=== PATIENT | female | born 1980 | race African-American/Black ===

== ENCOUNTER 2019-12-30 07:38 | Day surgery (SDC) ==
--- NOTE | 2019-11-09 10:13 | EKG Report ---
Test Performed on : 11/09/2019 09:07:48 AM Test Reason : PAT Blood Pressure : / mmHG Vent. Rate : 070 BPM Atrial Rate : 070 BPM P-R Int : 148 ms QRS Dur : 086 ms QT Int : 388 ms P-R-T Axes : 034 -09 -20 degrees QTc Int : 419 ms Normal sinus rhythm. with sinus arrhythmia. Voltage criteria for left ventricular hypertrophy Nonspecific T wave abnormality Abnormal ECG No previous ECGs available Confirmed by Alejandro Slade MD ([id number]) on 11/10/2019 7:40:49 AM
--- NOTE | 2019-12-29 20:16 | HISTORY AND PHYSICAL ---
HISTORY OF PRESENT ILLNESS: This is a 39-year-old female who has developed significant flank pain. She has history of urolithiasis as well as left hydronephrosis. She underwent cystoscopy and bilateral retrograde pyelograms on 09/14/2019. She had significant ureteropelvic junction obstruction on retrograde pyelogram. She continues to have left flank pain. Her flank pain has been exacerbated, and she reports associated nausea. She had to have pain medications called in given the worsening pain. PAST MEDICAL HISTORY: Hypertension, urolithiasis, microhematuria, stress urinary incontinence, hypothyroidism, GERD. PAST SURGICAL HISTORY: Cholecystectomy, foot surgery, Altis midurethral sling. MEDICATIONS: Hydrochlorothiazide, levothyroxine, Protonix, Toradol, Ultram. ALLERGIES: Penicillin. FAMILY HISTORY: Negative for malignancies. SOCIAL HISTORY: Denies tobacco, alcohol or illicit drug use. PHYSICAL EXAMINATION: GENERAL: No acute distress. HEENT: Normocephalic, atraumatic. CARDIOVASCULAR: Regular rhythm. PULMONARY: Bilateral breath sounds. ABDOMEN: Soft, protuberant, nontender to palpation. GENITOURINARY: Normal external female genitalia. ASSESSMENT AND PLAN: A 39-year-old female with symptomatic left ureteropelvic junction obstruction who continues to have significant pain and nausea. She was counseled on observation versus cystoscopy with left ureteral stent placement followed by serial stent exchanges versus endopyelotomy versus robotic pyeloplasty. Pros and cons of each procedure were explained. She wants to proceed with the latter. We discussed the risks of left robotic pyeloplasty including but not limited to, bleeding, infection, injury to adjacent organs, inability to repair scar tissue, chance of scar tissue recurrence. Need for ureteral stent for 4 to 6 weeks. Need for additional procedures. She voiced understanding and wants to proceed. PLAN: Left robotic-assisted laparoscopic pyeloplasty with left ureteral stent placement. cc: Kalpesh Martinez MD
[2019-12-30] MEDS ORDERED: LR 1,000 ML ONE ×2 (07:52→09:32)
[2019-12-30] MEDS ORDERED: LEVAQUIN 500 MG/D5W 500 MG/100 ML IVPB ONE (07:52)
[2019-12-30] MEDS ORDERED: REGLAN ONE (07:52)
[2019-12-30] MEDS ORDERED: PEPCID ONE (07:52)
[2019-12-30] MEDS ORDERED: VALIUM ONE (08:09)
[2019-12-30] MEDS ORDERED: DIPRIVAN 1% ONE (08:40)
[2019-12-30] MEDS ORDERED: NORCURON ONE (08:41)
[2019-12-30] MEDS ORDERED: XYLOCAINE-MPF 2% ONE (08:41)
[2019-12-30] MEDS ORDERED: QUELICIN (DOSE) ONE (08:41)
[2019-12-30] MEDS ORDERED: VERSED ONE (08:41)
[2019-12-30] MEDS ORDERED: FENTANYL ONE (08:41)
[2019-12-30] MEDS ORDERED: SODIUM CHLORIDE 0.9% 10 ML ONE (08:43)
[2019-12-30] MEDS ORDERED: MARCAINE 0.25% PF/EPI 1:200,000 ONE (09:32)
[2019-12-30] MEDS ORDERED: DECADRON ONE (09:44)
[2019-12-30] MEDS ORDERED: ZOFRAN ONE (09:44)
[2019-12-30] MEDS ORDERED: OFIRMEV 1000 MG/ISOTONIC SOLN 1,000 MG/100 ML BOTTLE ONE (10:08)
[2019-12-30] MEDS ORDERED: ROBINUL ONE (10:26)
[2019-12-30] MEDS ORDERED: NEOSTIGMINE ONE (10:26)
[2019-12-30] MEDS: DILAUDID ONE ×2 (11:38→11:52)
[2019-12-30] MEDS ORDERED: MORPHINE IV PRN (12:54)
[2019-12-30] MEDS ORDERED: BENADRYL LIQUID PO PRN (13:00)
[2019-12-30] MEDS ORDERED: NORCO-10 PO PRN (13:00)
[2019-12-30] MEDS ORDERED: TYLENOL PO PRN (13:00)
[2019-12-30] MEDS ORDERED: DILAUDID IV PRN (13:00)
[2019-12-30] MEDS ORDERED: D5 1/2 NS 1,000 ML IV SCH (13:00)
[2019-12-30] MEDS ORDERED: PHENERGAN IV PRN (13:00)
[2019-12-30] MEDS ORDERED: NORCO-5 PO PRN (13:00)
[2019-12-30] MEDS ORDERED: BENADRYL IV PRN (13:00)
[2019-12-30] MEDS ORDERED: ZOFRAN IV PRN (13:00)
[2019-12-30] MEDS ORDERED: PHENERGAN PO PRN (13:00)
[2019-12-30] MEDS ORDERED: LABETALOL IV PRN (13:00)
[2019-12-30] MEDS ORDERED: DITROPAN PO PRN (13:00)
[2019-12-30] MEDS ORDERED: PHENERGAN PR PRN (13:00)
[2019-12-30] MEDS ORDERED: OFIRMEV 1000 MG/ISOTONIC SOLN 1,000 MG/100 ML BOTTLE IV PRN (16:30)
[2019-12-30] MEDS: NORCO-7.5 PO PRN (18:08)
[2019-12-30] MEDS: TORADOL IV SCH (18:09)
[2019-12-30] MEDS ORDERED: COLACE PO SCH (21:00)
[2019-12-30] MEDS ORDERED: PERIDEX MT SCH (21:00)
[2019-12-31] MEDS: TORADOL IV SCH ×2 (00:05→05:21)
[2019-12-31 06:45] LABS: CREATININE BODY FLUID 5.9 mg/dL
[2019-12-31 07:30] VITALS: BP 134/77
--- NOTE | 2019-12-31 07:32 | OPERATIVE NOTE ---
PROCEDURE DATE: 12/30/2019 SURGEON: Dr. Kalpesh Martinez. MECHANICAL ENGINEERING DIRECTOR: Dr. Iraj Smiley. Please note that Dr. Smiley assisted in every critical part of the operation. PROCEDURE NAME: Left robotic-assisted laparoscopic pyeloplasty, placement of 6-Bangladeshi, 22 cm stent. INDICATIONS: A 39-year-old female who had imaging in the past revealing left hydronephrosis. She underwent further evaluation with cystoscopy and retrograde pyelograms at [facility] which revealed a dilated renal pelvis with hydronephrosis and what appeared to be clear ureteropelvic junction obstruction. She was counseled on observation versus serial stents versus repair, and started developing pain and nausea. She desires intervention. PREOPERATIVE DIAGNOSES: 1. Left ureteropelvic junction obstruction. 2. Left flank pain. 3. Nausea. Please note that she was counseled on waiting with the procedure and the risk of renal function deterioration, and she wants to proceed. FINDINGS: Watertight, tension-free anastomosis. There was an hourglass deformity at the ureteropelvic junction, consistent with pyelogram results. DESCRIPTION OF PROCEDURE: After obtaining informed consent, the patient was brought to the operating room. Perioperative antibiotics and general endotracheal anesthesia were administered. She was placed in the modified flank position with the left side up. She was prepped and draped in a sterile fashion. A 6-Bangladeshi Pereyra catheter was introduced and bladder was drained. I began by making a small stab incision in her left upper quadrant and introduced a Veress needle connected to a saline-filled syringe, and confirmed positive drop test, followed by aspiration of fluid in the syringe without evidence of GI contents or blood. We then insufflated her pneumoperitoneum pressure to 15 mmHg. The trocar sites were demarcated in what would be a partial nephrectomy fashion. Quarter percent Marcaine with epinephrine was used for a local anesthetic in the amount of 10 mL. Bovie electrocautery was used to the skin. A 12 mm camera trocar was introduced and peritoneal cavity was inspected. She did not have any significant adhesions. I was able to place the rest of the trocars under direct vision. She was positioned in a more pronounced flank position. The robot was docked. We began by incising the white line of Toldt and mobilizing the colon medially. This allowed us to expose Gerota's fascia. I followed the contour of the kidney to its lower pole and incised the Gerota's fascia, eventually being able to identify the ureter and the gonadal vein. We then carefully dissected along the ureter in a cephalad direction until the ureteropelvic junction came into the view. I made sure to preserve periurethral blood supply. There was a pretty clear narrowing right at the ureteropelvic junction which was just a few millimeters and there was some dilation of the renal pelvis, although it did not appear to be as pronounced as it was in the retrograde pyelogram. I dissected to get us approximately 2 cm of margin of the renal pelvis and in the process, was able to identify the left renal vein. We then transected the ureteropelvic junction and sent it off for identification. The ureter was spatulated with monopolar scissors in a cold fashion. Then 4-0 Vicryl sutures were used in an interrupted fashion x4 to reapproximate the posterior renal pelvis and the posterior aspect of the ureter. I was able to tie the sutures and the anastomosis appeared to be tension- free. Subsequent to that, a Sensor wire was introduced into the ureter and a 6-Bangladeshi, 22 cm stent was advanced over the wire with the proximal coil position confirmed by placement under direct vision into the renal pelvis. I then placed 4 more interrupted sutures, giving us a total of 8 interrupted 4-0 Vicryl sutures to complete the anastomosis. There was no evidence of leakage at the anastomotic site. Again, it appeared to be tension-free. Pneumoperitoneal pressure was decreased to 3 mmHg. There was no evidence of bleeding. A Ziggy drain was introduced via the fourth arm trocar site and secured to the skin with 2-0 nylon suture. The robot was undocked. Her wounds were irrigated. A 0 Vicryl suture was used to reapproximate the fascia of the camera and assistant banquet manager trocar sites. Then 4-0 Monocryl was used for subcuticular closure, followed by Covidien adhesive agent. She tolerated the procedure well. Her Pereyra catheter was removed. She was extubated and taken to the PACU for further recovery. ESTIMATED BLOOD LOSS: 10 mL. COMPLICATIONS: None. SPECIMENS REMOVED: Labeled left ureteropelvic junction. DRAINS: A 6-Bangladeshi, 22 cm stent. DISPOSITION: To the PACU and subsequently the floor for observation with the Ziggy drain to bulb suction. cc: Kalpesh Martinez MD
[2019-12-31 07:49] LABS: HEMOGLOBIN 11.2 g/dL (12.0-16.0); MCH 30.4 PG (27-31); MCHC 32.9 g/dL (33-37); MCV 92.1 FL (81-99); MPV 10.9 FL (7.4-10.4); RBC 3.69 XMIL (4.2-5.4); RDW 13.5 % (11.5-14.5); WBC 13.36 X1000 (4.8-10.8)
[2019-12-31 08:05] LABS: CALCIUM 9.2 mg/dL (8.8-10.2); CREATININE 1.3 mg/dL (0.5-0.9); POTASSIUM 3.6 mmol/L (3.5-5.1)
[2019-12-31] MEDS ORDERED: LEVAQUIN 500 MG/D5W 500 MG/100 ML IVPB IV SCH (09:00)
[2019-12-31] MEDS: NORCO-7.5 PO PRN (09:44)
--- NOTE | 2019-12-31 16:12 | PROGRESS NOTE ---
DATE: 12/31/2019 Ms. Diaz reports she had a good night overnight. Her pain is adequately controlled. She denies nausea, vomiting, or fevers. T 98.4 degrees, P 92, BP 134/77. She had voided several times through the night. PHYSICAL EXAMINATION: General: No acute distress. Abdomen: Soft, appropriately tender. Nondistended. Incisions are clean, dry, and intact in all port sites. A Ziggy drain has serosanguineous fluid. PERTINENT LABORATORY DATA: White cell count 13,000, hematocrit is 34. Creatinine is 1.3, her MINO creatinine is 5.9. ASSESSMENT AND PLAN: A 39-year-old female who is postoperative day 1 after left robotic assisted laparoscopic pyeloplasty and left ureteral stent placement. She is doing well overall. We discussed her elevated fluid creatinine levels and that she likely has small leak at the anastomotic site. We discussed keeping the drain in for several more days and record the output. She is otherwise cleared for discharge. PLAN: 1. Discharge home. 2. She will go home with prescriptions for Ditropan, Fritch 7.5, Zofran p.r.n. and Bactrim single strength for 1 week. 3. I plan on seeing her in clinic on 01/04/2020 at which time we will reassess and hopefully remove her Ziggy drain. cc: Kalpesh Martinez MD
== END 2019-12-31 09:54 | disposition home or self-care (01) ==
LOC: 4N 07:38 → OPS 07:38 → UNDODISOB 12-31 09:54
PROVIDERS: ATTEND Urology